=== PATIENT | female | born 1990 | race Caucasian/White ===

== ENCOUNTER → 2016-09-28 20:44 | Observation (INO) ==
[2016-09-28 17:23] LABS: Bilirubin,Urine Negative (Negative); Blood,Urine Large (Negative); Clarity,Urine Cloudy (Clear); Color,Urine Yellow (Yellow); Glucose,Urine (UA) Normal (Normal); Ketones,Urine Negative (Negative); Leukocyte Esterase,Urine Small (Negative); Nitrite,Urine Negative (Negative); Protein,Urine Negative (Neg-Trace); Specific Gravity,Urine 1.007 (1.010-1.025); Urobilinogen,Urine Normal (Normal)
[2016-09-28 17:50] LABS: RBC,Urine 15-30 per hpf (0-3); Squamous Epithelial Cell,Urine Many per lpf (None-Few)
[2016-09-28 17:51] LABS: Bacteria,Urine Many per hpf (None-Few); Hyaline Casts,Urine None Seen per lpf (None-Few); Mucus,Urine Few (Few)
--- NOTE | 2016-09-28 20:25 | Discharge Summary ---
Date of Encounter: 09/28/16 Time of Encounter: 20:26 - Discharge Diagnosis (1) 24 weeks gestation of Priority: Primary Status: Acute Comments: admitted for observation (2) Triplet gestation in second trimester Priority: Secondary Status: Acute Comments: FHT x3 Cervical length 09/17/2016 was 44mm, 42mm with pressure without sludge or funneling. Patient and findings discussed with Dr. Dougherty. Will discharge home and follow up prn Qualifiers: Multiple gestation type: unspecified Qualified Code(s): O30.102 - Triplet , unspecified number of placenta and unspecified number of amniotic sacs, second trimester (3) Renal calculus, right Priority: Secondary Status: Acute Comments: Patient reports no pain at this time PO hydration encouraged Patient declines need for pain medication - Discharge Medications Home Medications: Aspirin [Lo-Dose Aspirin EC] 81 mg PO DAILY 09/28/16 [History] Ferrous Sulfate [Iron] 325 mg PO DAILY 09/28/16 [History] Folic Acid 1 / PO DAILY 09/28/16 [History] Pnv95/Ferrous Fumarate/FA [ Vitamin Tablet] 1 mg PO DAILY 09/28/16 [ History] Progesterone,Micronized [Progesterone] 200 mg PO DAILY 09/28/16 [History] Allergies/Adverse Reactions: 3 Allergy/AdvReac Type Severity Reaction Status Date / Time No Known Allergies Allergy Verified 09/28/16 17:14 Data Procedures and tests throughout hospitalization: Laboratory Tests 09/28/16 16:50 Urine Color Yellow Urine Clarity Cloudy A Urine pH 7.0 Ur Specific [place] 1.007 L Urine Protein Negative Urine Glucose (UA) Normal Urine Ketones Negative Urine Blood Large H Urine Nitrite Negative Urine Bilirubin Negative Urine Urobilinogen Normal Ur Leukocyte Esterase Small H Urine Microscopic RBC 15-30 H Urine Microscopic WBC 3-5 H Ur Squamous Epith Cells Many H Urine Bacteria Many H Hyaline Casts None Seen Urine Mucus Few Urine Yeast [employer] Ur Culture Indicated? YES A Labs on day of discharge: Labs from last 24 hours 09/28/16 16:50 Urine Color Yellow Urine Clarity Cloudy A Urine pH 7.0 Ur Specific [place] 1.007 L Urine Protein Negative Urine Glucose (UA) Normal Urine Ketones Negative Urine Blood Large H Urine Nitrite Negative Urine Bilirubin Negative Urine Urobilinogen Normal Ur Leukocyte Esterase Small H Urine Microscopic RBC 15-30 H Urine Microscopic WBC 3-5 H Ur Squamous Epith Cells Many H Urine Bacteria Many H Hyaline Casts None Seen Urine Mucus Few Urine Yeast [employer] Ur Culture Indicated? YES A - Impressions ITS Impressions Retroperitoneum Ultrasound 09/28/16 17:47 IMPRESSION: Unremarkable ultrasound of the kidneys and urinary bladder. 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 A CCUA showed a large amount of blood and patient passed a small kidney stone after her admission. Stone was sent to pathology. Patient had a renal scan which showed no hydronephrosis. A tiny renal calculi is suspect in right kidney. Patient reports +FM, denies contractions, LOF or VB. Discussed POC with patient. Patient denies any questions or concerns and reports she is comfortable going home. Patient to follow up with Dr. Sosa as scheduled on 10/07/2016. Time Attestation: Total time spent providing and/or coordinating discharge services: Time Spent: Less than 30 minutes Exam - Constitutional General appearance IM: A&O X 3, pleasant, obese, answers questions appropriately - Respiratory Respiratory exam: Present: CTAB - Cardiovascular Cardiovascular exam IM: Present: RRR, +S1, +S2 - GI/Abdominal GI/Abdominal exam IM: normal bowel sounds, tenderness (over bladder) - Extremities Exam Extremities exam IM: Present: full ROM, normal capillary refill, normal inspection - Neurological Exam Neurological exam: alert, oriented X3, reflexes normal - Other Additional findings: Patient has passes a stone while in labor and delivery. Stone was sent to pathology. FHT Baby A 160bpm Baby B 152 bpm and Baby C 148 bpm. Uterine irritability noted. - VTE Reasons for not Prescribing Prophylaxis: Treatment not Indicated - Low risk for VTE
== END | disposition home or self-care (01) ==
LOC: 1NENULAB
PROVIDERS: ADMIT Obstetrics & Gynecology; ATTEND Obstetrics & Gynecology

== ENCOUNTER → 2016-10-23 00:50 | Observation (INO) ==
--- NOTE | 2016-10-23 01:04 | OB/GYN Progress Note ---
Date of Encounter: 10/23/16 Time of Encounter: 01:01 - Assessment and Plan (1) 28 weeks gestation of Current Visit: Yes Status: Acute (2) Triplet gestation in third trimester Current Visit: Yes Status: Acute heart tones present on all infants Qualifiers: Multiple gestation type: unspecified Qualified Code(s): O30.103 - Triplet , unspecified number of placenta and unspecified number of amniotic sacs, third trimester (3) Encounter for suspected PROM, with rupture of membranes not found Current Visit: Yes Status: Acute Speculum exam shows no vaginal pooling and nitrazine negative. Patient discharged home with labor precautions and to return to triage for evaluation. Patient verbalizes understanding Subjective - Subjective Interval history: at 28+3 weeks triplet gestation presents to triage with complaints of small gush of fluid while having a bowel movement earlier this evening. Patient reports good movements of all 3 babies, denies vaginal bleeding or contractions. Patient states has only had normal vaginal discharge no other leaking or increased vaginal discharge noticed after incidental leaking fluid Objective - Vital Signs Vital Signs: Intake and Output 10/22/16 10/22/16 10/23/16 15:59 23:59 07:59 Other: Weight 164 kg Patient Weight 10/23/16 23:59 Weight 164 kg - Exam FHR: auscultation normal FHR comments: heart tones noted is present in all 3 infants Baby A- baseline 150 Baby B-baseline 145 [place] C- heart tones found by ultrasound briefly noted at 160 Auscultation: bilateral: normal Abdomen: Present: normal appearance, gravid Cervical dilation: Fingertip/long/-3
== END | disposition home or self-care (01) ==
LOC: 1NENULAB
PROVIDERS: ADMIT Obstetrics & Gynecology; ATTEND Obstetrics & Gynecology

== ENCOUNTER → 2016-11-10 17:40 | Observation (INO) ==
[2016-11-10 16:26] LABS: Basophils % 0.3 %; Eosinophils % 0.4 %; Hematocrit 36.8 % (35.3-44.9); Hemoglobin 11.9 g/dL (11.5-15.4); Immature Granulocytes % 0.5 % (0-4); Lymphocytes # 1.9 K/mcL (0.6-4.6); Lymphocytes % 18.9 %; Mean Corpuscular HGB Conc 32.3 g/dL (31.6-35.5); Mean Corpuscular Hemoglobin 26.3 pg (28.0-33.3); Mean Corpuscular Volume 81.4 fL (83.0-100.0); Mean Platelet Volume 10.4 fL (9.4-12.4); Monocytes # 0.7 K/mcL (0.0-1.3); Monocytes % 7.5 %; Neutrophils # 7.2 K/mcL (1.6-8.9); Platelet Count 201 K/mcL (140-400); Red Blood Count 4.52 M/mcL (3.82-4.97); Red Cell Distribution Width 14.6 % (11.5-14.5); Segmented Neutrophils % 72.4 %
[2016-11-10 16:37] LABS: Amphetamine Screen,Urine Negative ng/mL (Cutoff=1000); Barbiturate Screen,Urine Negative ng/mL (Cutoff=200); Benzodiazepines Screen,Urine Negative ng/mL (Cutoff=200); Cannabinoid Screen,Urine Negative ng/mL (Cutoff = 50); Cocaine Screen,Urine Negative ng/mL (Cutoff= 300); Opiate Screen,Urine Negative ng/mL (Cutoff=300); Phencyclidine Screen,Urine Negative ng/mL (Cutoff=25)
[2016-11-10 16:40] LABS: Alanine Aminotransferase 22 Units/L (0-55); Aspartate Amino Transferase 14 Units/L (5-34); BUN/Creatinine Ratio 8 (6-26); Lactate Dehydrogenase 147 Units/L (159-327); Uric Acid 5.5 mg/dL (2.6-6.0); eGFR For African Americans > 60 (> 60); eGFR For Non-African Americans > 60 (> 60)
[2016-11-10 16:44] LABS: Blood Urea Nitrogen 5 mg/dL (7-20)
[~2016-11-10 17:40] MED LIST: Betamethasone Acet/SodPhos 6 MG/ML MDV IM SCH
--- NOTE | 2016-11-10 18:01 | OB/GYN Progress Note ---
Date of Encounter: 11/10/16 Time of Encounter: 17:59 - Assessment and Plan (1) 31 weeks gestation of Current Visit: Yes Status: Acute Betamethasone course started second dose tomorrow when drops off 24-hour urine (2) Elevated blood pressure affecting in third trimester, antepartum Current Visit: Yes Status: Acute All PIH labs negative, patient sent home with 24-hour urine will return tomorrow , blood pressure is slightly elevated in triage 145/85, 145/88, 142/[address] Paulino, decision made at this time not to start medication therapy. Patient will follow-up in normal NST appointment on Tuesday (3) Triplet gestation in third trimester Current Visit: No Status: Acute Able to adequately monitor's baby A, C unable to monitor baby B. However, patient just completed MFM appointment with ultrasound evaluation of all fetuses. Discussed able to monitor baby B with Drs. Paulino and Sheila decision made to discharge at this time. MFM did have discussion with patient that they may be able to adequately monitors all especially baby B due to low lying in pelvis Qualifiers: Multiple gestation type: unspecified Qualified Code(s): O30.103 - Triplet , unspecified number of placenta and unspecified number of amniotic sacs, third trimester Subjective - Subjective Interval history: at 31+0 weeks triplet gestation presents for PIH eval following elevated blood pressures during MFM evaluation. Patient reports good movement and denies vaginal bleeding leaking of fluid, headaches, abdominal pain or visual changes. Patient with previous elevated blood pressures prior to was on labetalol has been off labetalol with normotensive during Antepartum ROS: movement normal, no loss of fluid, no vaginal bleeding, no contractions Objective - Exam FHR: auscultation normal (Appropriate tracing of fetus A, C, unable to trace fetus B) Auscultation: bilateral: normal Abdomen: Present: normal appearance, soft, gravid - Labs Labs: Abnormal lab results MCV 81.4 fL (83.0-100.0) L 11/10/16 16:10 MCH 26.3 pg (28.0-33.3) L 11/10/16 16:10 RDW 14.6 % (11.5-14.5) H 11/10/16 16:10 BUN 5 mg/dL (7-20) L 11/10/16 16:10 Lactate Dehydrogenase 147 Units/L (159-327) L 11/10/16 16:10 Urine Total Protein 24 mg/dL (1-14) H 11/10/16 16:10
== END | disposition home or self-care (01) ==
LOC: 1NENULAB
PROVIDERS: ADMIT Obstetrics & Gynecology; ATTEND Obstetrics & Gynecology